=== PATIENT | male | born 1980 | race Caucasian/White ===

== ENCOUNTER 2016-09-07 22:08 | Emergency (ER) | payer BC ==
[~2016-09-07] VITALS: Ht 167.6 cm; Wt 93.4 kg
[~2016-09-07 22:08] MED LIST: ALBUAER2
[2016-09-07 22:10] VITALS: TEMP 36.7; Ht 167.6 cm; Wt 93.4 kg
[2016-09-07 22:29] VITALS: O2SAT 96
[2016-09-07] MEDS ORDERED: VNTHFA/IN INH (22:43)
[2016-09-07] MEDS ORDERED: MULT-506 PO (22:43)
[2016-09-07 23:13] LABS: BASO % 0.6 %; BASO ABS # 0.03 K/uL (0-0.2); COMPLETE YES; EOS % 2.2 %; HEMATOCRIT 42.3 % (42-52); IG% 0.2 %; LYMPH % 29.5 %; LYMPH ABS # 1.46 K/uL (1.2-3.4); MEAN CELL VOLUME 83.3 fL (80-100); MEAN CORPUSCULAR HEMOGLOBIN 29.9 pg (25-34); MEAN CORPUSCULAR HGB CONC 35.9 g/dl (32-36); MEAN PLATELET VOLUME 9.5 fL (7.4-10.4); MONO % 8.7 %; NEUT % 58.8 %; PLATELET COUNT 196 K/uL (130-400); RED BLOOD COUNT 5.08 M/uL (4.7-6.1); WHITE BLOOD COUNT 4.95 K/uL (4.8-10.8)
[2016-09-07 23:31] LABS: ALT/SGPT 36 U/L (12-78); AST/SGOT 17 U/L (15-37); BLOOD UREA NITROGEN 18 mg/dl (7-18); BUN/CREATININE RATIO 12.1 (10-20); CALCIUM 8.7 mg/dl (8.5-10.1); CARBON DIOXIDE 28 mmol/L (21-32); CHLORIDE 105 mmol/L (98-107); GLUCOSE 78 mg/dl (70-99); MAGNESIUM 2.3 mg/dl (1.8-2.4); POTASSIUM 3.9 mmol/L (3.5-5.1); SODIUM 144 mmol/L (136-145)
[2016-09-07 23:42] LABS: ALKALINE PHOSPHATASE 51 U/L (45-117)
[2016-09-07 23:57] VITALS: BP 109/84; PULSE 59; O2SAT 96
--- NOTE | 2016-09-08 00:03 | EMERGENCY ROOM VISIT NOTE ---
History First contact with patient: 22:14 Chief Complaint: HYPERTENSION Stated Complaint: HIGH BP, TACHY History of Present Illness The patient is a 35 year old male who presents to the Emergency Room with complaints of and intermittent palpitations for the past several months who had a Holter monitor for 5 years ago that showed possible PVCs. He saw Dr. Adler's office. Patient is a PA at orthopedics. Patient states he has a 6-month-old at home and is sleeping a little bit less. He's been having intermittent palpitations that last for a few seconds to a few minutes a few times a month. Patient states he drinks minimal caffeine. Minimal alcohol. No drugs. No stimulants. No [id number] medications. He routinely exercises without difficulties. Patient denies chest pain, dyspnea, fever, chills, cough, congestion, abdominal pain, leg pain or swelling, recent travel, tobacco use, drug use. No family history of heart disease. Review of Systems See HPI for pertinent positives & negatives. A total of 10 systems reviewed and were otherwise negative. Past Medical/Surgical History Medical Problems: (1) Asthma (2) left elbow surgery Family History Diabetes mellitus FHx: cancer Hypertension Kidney disease Kidney stones Social History Smoking Status: Never Smoker Alcohol Use: occasionally Drug Use: none Marital Status: Housing Status: lives with family Occupation Status: employed Current/Historical Medications Scheduled Multivitamin (Multivitamin), 1 TAB PO DAILY Scheduled PRN Albuterol Hfa (Ventolin Hfa), 2-4 PUFFS INH Q6H PRN for Shortness of Breath Allergies Coded Allergies: No Known Allergies (Verified , `, 09/07/16) Physical Exam Vital Signs Date Time Temp Pulse Resp B/P Pulse Ox O2 Delivery O2 Flow Rate FiO2 09/07/16 23:30 60 18 118/81 96 Room Air 09/07/16 22:44 60 18 125/83 96 Room Air 09/07/16 22:35 61 09/07/16 22:29 96 Room Air 09/07/16 22:10 36.7 67 18 142/93 97 Room Air Physical Exam VITALS: Vitals are noted on the nurse's note and reviewed by myself. Vital signs stable. GENERAL: Pleasant male mildly anxious-appearing, in no acute distress, nondiaphoretic, well-developed well-nourished. SKIN: The skin was without rashes, erythema, edema, or bruising. There is no tenting of the skin. Capillary reflex less than 2 seconds. HEAD: Normocephalic atraumatic. EARS: External auditory canals clear, tympanic membranes pearly ortega without erythema or effusion bilaterally. EYES: Pupils equal round and reactive to light and accommodation. Conjunctivae without injection, sclerae without icterus. Extraocular movements intact. NOSE: Patent, turbinates without inflammation or discharge. MOUTH: Mucous membranes moist. Pharynx without erythema or exudate. Uvula midline. Airway patent. Tongue does not deviate. NECK: Supple without nuchal rigidity. No lymphadenopathy. No thyromegaly. Cervical spine is nontender. No JVD. HEART: Regular rate and rhythm without murmurs gallops or rubs. LUNGS: Clear to auscultation bilaterally without wheezes, rales or rhonchi. No dullness to percussion. No retractions or accessory muscle use. ABDOMEN: Positive bowel sounds x 4. Normal tympanic percussion. Soft, nontender, without masses or organomegaly. Pritchard sign negative. No guarding or rebound tenderness. MUSCULOSKELETAL: No muscle atrophy, erythema, or edema noted. NEURO: Patient was alert and oriented to person place and time. Normal sensation to light and sharp touch. No focal neurological deficits. Medical Decision & Procedures Laboratory Results 09/07/16 22:40 Red Blood Count 5.08, Mean Corpuscular Volume 83.3, Mean Corpuscular Hemoglobin 29.9, Mean Corpuscular Hemoglobin Concent 35.9, Mean Platelet Volume 9.5, Neutrophils (%) (Auto) 58.8, Lymphocytes (%) (Auto) 29.5, Monocytes (%) (Auto) 8.7, Eosinophils (%) (Auto) 2.2, Basophils (%) (Auto) 0.6, Neutrophils # (Auto) 2.91, Lymphocytes # (Auto) 1.46, Monocytes # (Auto) 0.43, Eosinophils # (Auto) 0.11, Basophils # (Auto) 0.03 09/07/16 22:40 Test 09/07/16 22:40 White Blood Count 4.95 K/uL (4.8-10.8) Red Blood Count 5.08 M/uL (4.7-6.1) Hemoglobin 15.2 g/dL (14.0-18.0) Hematocrit 42.3 % (42-52) Mean Corpuscular Volume 83.3 fL (80-100) Mean Corpuscular Hemoglobin 29.9 pg (25-34) Mean Corpuscular Hemoglobin Concent 35.9 g/dl (32-36) Platelet Count 196 K/uL (130-400) Mean Platelet Volume 9.5 fL (7.4-10.4) Neutrophils (%) (Auto) 58.8 % Lymphocytes (%) (Auto) 29.5 % Monocytes (%) (Auto) 8.7 % Eosinophils (%) (Auto) 2.2 % Basophils (%) (Auto) 0.6 % Neutrophils # (Auto) 2.91 K/uL (1.4-6.5) Lymphocytes # (Auto) 1.46 K/uL (1.2-3.4) Monocytes # (Auto) 0.43 K/uL (0.11-0.59) Eosinophils # (Auto) 0.11 K/uL (0-0.5) Basophils # (Auto) 0.03 K/uL (0-0.2) RDW Standard Deviation 36.1 fL (36.4-46.3) RDW Coefficient of Variation 11.8 % (11.5-14.5) Immature Granulocyte % (Auto) 0.2 % Immature Granulocyte # (Auto) 0.01 K/uL (0.00-0.02) Anion Gap 11.0 mmol/L (3-11) Est Creatinine Clear Calc Drug Dose 72.8 ml/min Estimated GFR () 68.4 Estimated GFR (Non- 59.0 BUN/Creatinine Ratio 12.1 (10-20) Calcium Level 8.7 mg/dl (8.5-10.1) Magnesium Level 2.3 mg/dl (1.8-2.4) Total Bilirubin 0.6 mg/dl (0.2-1) Direct Bilirubin 0.1 mg/dl (0-0.2) Aspartate Amino Transf (AST/SGOT) 17 U/L (15-37) Alanine Aminotransferase (ALT/SGPT) 36 U/L (12-78) Alkaline Phosphatase 51 U/L (45-117) Total Creatine Kinase 180 U/L (39-308) Troponin I < 0.015 ng/ml (0-0.045) Total Protein 7.4 gm/dl (6.4-8.2) Albumin 4.3 gm/dl (3.4-5.0) Thyroid Stimulating Hormone (TSH) 2.970 uIu/ml (0.300-4.500) ED Course Prior records/ancillary studies reviewed. Triage Nursing notes reviewed. Additional history obtained from family The patient's history was concerning for palpitations. Differential diagnosis: Etiologies such as premature contractions, electrolyte abnormality, cardiac dysrhythmia, thyroid dysfunction, pulmonary embolism, infection, gastrointestinal, as well as others were entertained. Physical examination: Benign as above. ER treatment provided: Patient was observed On reassessment the patient felt better. Diagnostic interpretation by me: Cardiac monitoring revealed no dysrhythmia. The electrocardiogram was negative for pathologic change. Normal sinus, normal intervals, no acute ST-T wave changes. Impression sinus bradycardia with rate 56 interpreted by myself The labs revealed euthyroid. No anemia. Creatinine 1.5 This appears to be consistent with palpitations. Patient was asymptomatic while in the ER. He was advised to stay well-hydrated and to recheck his CR with family care in a few days. He is well-appearing. Unremarkable workup as above. Patient was advised to rest, stay well-hydrated and to follow-up with his family care doctor and/or machine technician for further workup and Holter monitor. He was advised to return to the ER immediately for prolonged palpitations, chest pain, difficulty breathing, worsening signs or symptoms or as needed. By the evaluation outlined above emergent etiologies such as electrolyte abnormality, cardiac dysrhythmia, thyroid dysfunction, pulmonary embolism, infection, as well as others were deemed relatively unlikely. The pt informed about the findings as listed above. All questions were answered and pleased with the treatment. Return instructions were outlined and the patient was discharged in stable condition. Referral: The patient was referred back to their primary care physician and/or machine technician for follow-up in 2 to 3 days for a recheck of the current condition Case reviewed with my attending Medical Decision As above Impression Primary Impression: Palpitations Departure Information Dispostion Home / Self-Care Condition GOOD Referrals Marianna Groves PA-C (PCP) Patient Instructions My [facility] Additional Instructions Increase fluids and recheck your creatinine this week with family care doctor. Ibuprofen(Motrin, Advil) may be used for fever or pain. Use 600mg every six hours as needed. Take with food. Avoid using more than 2400mg in a 24 hour period. Do not use 2400mg per day for more than three consecutive days without physician direction. Prolonged inappropriate use can lead to stomach upset or ulcers. (AND/OR) Acetaminophen(Tylenol) may be used for fever or pain. Use 1000mg every six hours as needed. Avoid using more than 3000mg in a 24 hour period. Rest and drink plenty of fluids as tolerated. Continue current medications. Avoid strenuous activities and anything that worsens your symptoms. Resume normal activities once your symptoms resolve. Return to the ER immediately for worsening or persistent prolonged palpitations , abdominal pain, vomiting, fevers, chest pains, difficulty breathing, worsening of your condition, or as needed. Follow up with your primary physician and machine technician for Holter monitor in 2- 3 days for a recheck of your current condition.
== END 2016-09-08 00:08 | disposition home or self-care (01) ==
LOC: C.EDB 22:10 → C.EDA 09-08 00:08
DX: R00.2 Palpitations (principal); J45.909 Unspecified asthma, uncomplicated; Z83.3 Family history of diabetes mellitus; Z80.9 Family history of malignant neoplasm, unspecified; Z82.49 Family history of ischemic heart disease and other diseases of the circulatory system; Z84.1 Family history of disorders of kidney and ureter

== ENCOUNTER → 2016-09-12 | Outpatient (CLI) | payer BC ==
[~2016-09-12] MED LIST changes: -ALBUAER2; +MULT-506 PO; +VNTHFA/IN INH
[2016-09-12 08:55] LABS: BLOOD UREA NITROGEN 21 mg/dl (7-18); BUN/CREATININE RATIO 20.6 (10-20); CALCIUM 9.1 mg/dl (8.5-10.1); CARBON DIOXIDE 26 mmol/L (21-32); CHLORIDE 106 mmol/L (98-107); GLUCOSE 85 mg/dl (70-99); SODIUM 141 mmol/L (136-145)
== END ==
LOC: C.LAB 07:25
PROVIDERS: ATTEND Internal Medicine Geriatric Medicine
DX: R79.89 Other specified abnormal findings of blood chemistry (principal)